=== PATIENT | male | born 1950 | race American Indian/Alaskan Native ===

== ENCOUNTER 2016-12-17 06:59 | Day surgery (SDC) | payer OTHER ==
[2016-12-16 13:16] VITALS: BMI 25.0
[2016-12-17] MEDS ORDERED: MIDAZOLAM HCL 2 MG/2 ML SINGLE DOSE VIAL ONE (08:37)
[2016-12-17] MEDS ORDERED: PROPOFOL 20 ML ONE ×3 (08:38→10:32)
[2016-12-17] MEDS ORDERED: LIDOCAINE HCL/PF 2% SDV 5ML VIAL ONE (08:38)
[2016-12-17] MEDS ORDERED: SUCCINYLCHOLINE CHLORIDE 200 MG/10 ML VIAL ONE (08:38)
[2016-12-17] MEDS ORDERED: ONDANSETRON 4 MG/2 ML VIAL IVPUSH PRN (08:47)
[2016-12-17] MEDS ORDERED: LACTATED RINGERS SOLUTION 1,000 ML IV SCH (09:00)
[2016-12-17] MEDS ORDERED: HYDROmorphone HCL/PF 1 MG/ML VIAL (FOR PYXIS CHARGING ONLY) ONE (09:44)
[2016-12-17] MEDS ORDERED: DEXAMETHASONE SOD PHOSPHATE 4 MG/1 ML VIAL ONE (09:53)
[2016-12-17] MEDS ORDERED: ONDANSETRON 4 MG/2 ML VIAL ONE ×2 (09:53→12:26)
[2016-12-17] MEDS ORDERED: PHENYLEPHRINE HCL 10 MG/1 ML SINGLE DOSE VIAL ONE (09:53)
[2016-12-17] MEDS ORDERED: BUPIVACAINE HCL/PF 2.5 MG/ML - 30 ML VIAL IJ ONE (09:54)
[2016-12-17] MEDS ORDERED: BUPIVACAINE HCL/PF 0.5% (5MG/ML) 10 ML VIAL ONE (09:54)
[2016-12-17] MEDS ORDERED: traMADol HCL 50 MG TABLET PO ONE ×2 (13:18→13:55)
[2016-12-17 13:52] VITALS: TEMP 98
[2016-12-17 14:32] VITALS: BP 122/75; PULSE 76
--- NOTE | 2016-12-19 08:51 | OP ---
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 OPERATIVE PROCEDURE: 1. Right long finger metacarpophalangeal joint revision arthrodesis with internal fixation and autograft bone grafting. 2. Removal of deep implant/prosthesis, right long finger. SURGEON: Roe Funk MD [employer]ATION PARALEGAL: CÉSAR Benavides ANESTHESIA: General. COMPLICATIONS: None. ESTIMATED BLOOD LOSS: Minimal. INDICATION FOR PROCEDURE: The patient is a 66-year-old male who had an injury to the right long finger resulting in apparent arthrosis of the right long finger metacarpophalangeal joint. He was treated by another surgeon with arthrodesis of the right long finger metacarpophalangeal joint. 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 He was indicated for operative treatment and risks, benefits, and alternatives were discussed with the patient at length and proper informed consent was obtained. DESCRIPTION OF PROCEDURE: After proper identification of the patient and correct operative site, patient was brought to the operating room and placed supine on the operative table. Prominences were well padded. General anesthesia provided by the anesthesiologist adequate for the procedure. Intravenous antibiotics were given. Timeout procedure was performed. Right upper extremity was prepped and draped in the usual sterile fashion. A well-padded tourniquet was placed as well as a sterile prep. Esmarch bandage was used to exsanguinate the right upper extremity, and tourniquet was inflated to 250 mmHg. Curvilinear incision was made over the right long finger metacarpophalangeal joint. Incision was taken sharply through the skin, with blunt and sharp dissection through subcutaneous tissues. The extensor mechanism was divided longitudinally and elevated off of the metacarpophalangeal joint. The joint was visualized, and there was clear identification of the nonunion/nonfusion site. The patient had been fixed with an [employer] hand fusion plate and screw, and the screw implant was removed to release the joint. The plate portion was left in place in case I wanted to use this for the fixation of this point. The plate was in secure stable fixation. At this point, the MP joint was debrided of all the fibrous tissue that had formed in its place. There was absolutely no bony healing of this joint. Further shortening of the bones on both sides was necessary in order to obtain healthy cancellous bone for fusion. The bone was then prepared and aligned properly in order to obtain approximately 20 degrees of flexion at the MP joint. Excellent bony contact was achieved. At this point, a second incision was made over the dorsal radial aspect of the wrist. Incision was taken sharply through the skin, with blunt and sharp dissection through the subcutaneous tissues, carefully protecting nerve and tendon structures. A window was made in the dorsal radial aspect of the distal radius, and bone graft was harvested from the distal radius. This was then packed into the fusion site, and a compression screw was placed through the plate and into the proximal phalanx, obtaining secure fixation. To obtain further stability of rotation and compression, a tension band wire was placed as well. Radiographs were taken, showing excellent alignment and compression at the fusion site as well as positioning, sizing, and placement of all hardware. Rotation of the finger was confirmed, and the wound was repaired in layers using 5-0 nylon for the extensor tendon and 4-0 nylon for the skin. The wrist wound was also repaired with 4-0 nylon. Sterile dressings and a splint were placed. Patient was reversed from anesthesia and brought to the recovery room in stable condition. Madhu Mitchell, the preschool assistant, was integral throughout the procedure. Procedure could not have been performed without a skilled operative preschool assistant. Joycelyn [id number]
--- NOTE | 2016-12-23 16:32 | PATH ---
Surgical Pathology Report Patient Name: HARRIS NELSON [facility]. Rec. #: [id number] /Age/Gender: 1950 (Age: 66) / M Account: [id number] Location: [facility] AMBULATORY Taken: 12/18/2016 Received: 12/18/2016 Reported: 12/23/2016 Physicians: Roe Funk M.D. Specimen(s) Received OLD IMPLANT RIGHT HAND Clinical History Failed fusion right long finger Final Diagnosis OLD IMPLANT, RIGHT HAND, REMOVAL: METALLIC IMPLANT, DESCRIBED (GROSS EXAMINATION ONLY). Electronically Signed Rissa Burciaga M.D. Gross Description Received fresh labeled "old implant right hand," is a 3.6 cm in length hatch metallic screw. No soft tissue is present. No sections are submitted, gross only. 12/19/2016 [facility]12/19/2016
== END 2016-12-17 14:30 | disposition home or self-care (01) ==
LOC: FASU 06:59
PROVIDERS: ATTEND Orthopaedic Surgery Hand Surgery
PROC: 0RGU07Z Fusion of Right Metacarpophalangeal Joint with Autologous Tissue Substitute, Open Approach (ICD-10-PCS; principal; 2016-12-17 09:44)
PROC: 0RP Upper Joints, Removal (ICD-10-PCS; 2016-12-17 09:44)
DX: M19.141 Post-traumatic osteoarthritis, right hand (principal); M96.0 Pseudarthrosis after fusion or arthrodesis
CPT/HCPCS: 73130-TC-RT; 88300-TC; 94760